=== PATIENT | male | born 1985 | race Caucasian/White ===

== ENCOUNTER 2016-12-04 16:28 | Emergency (ER) | payer OTHER ==
[2016-12-04 16:35] VITALS: BP 125/79
--- NOTE | 2016-12-04 17:13 | ED ---
Throat Pain/Nasal Congestion - HPI Summary HPI Summary: Patient arrives with CC of left sided upper dental pain x2 days. Hx of previous dental infections which have all resolved spontaneously without the use of abx or pain management. Today, he states the pain is severe at 9/10 and radiates to the ear. He has had several broken teeth, all without correction or extraction. Patient chews tobacco. Patient without swelling. Denies difficulty opening mouth, swallowing or fever. - History of Current Complaint Chief Complaint: EDDentalPain Time Seen by Provider: 12/04/16 16:39 Hx Obtained From: Patient Onset/Duration: Sudden Onset Severity: Moderate Associated Signs And Symptoms: Positive: Negative - Allergies/Home Medications Allergies/Adverse Reactions: Allergies Allergy/AdvReac Type Severity Reaction Status Date / Time No Known Allergies Allergy Verified 07/29/13 10:36 PMH/Surg Hx/FS Hx/Imm Hx Previously Healthy: Yes Sensory History: Denies: Hx Contacts or Glasses Opthamlomology History: Denies: Hx Contacts or Glasses - Immunization History Hx Pertussis Vaccination: Yes Immunizations Up to Date: Unable to Obtain/Confirm Infectious Disease History: Yes Infectious Disease History: Denies: Hx Clostridium Difficile, Hx Hepatitis, Hx Human Immunodeficiency Virus (HIV), Hx of Known/Suspected MRSA, Hx Shingles, Hx Tuberculosis, Hx Known/ Suspected VRE, Hx Known/Suspected VRSA, History Other Infectious Disease, Traveled Outside the in Last 30 Days - Social History Occupation: Employed Full-time Lives: With Family Alcohol Use: Occasionally Hx Substance Use: No Substance Use Type: Reports: None Smoking Status (MU): Never Smoked Tobacco Type: Smokeless Tobacco Length of Time of Smoking/Using Tobacco: "a few years" Have You Smoked in the Last Year: No Review of Systems Constitutional: Negative Positive: Dental Pain Cardiovascular: Negative Respiratory: Negative Gastrointestinal: Negative Positive: no symptoms reported Musculoskeletal: Negative Skin: Negative Neurological: Negative All Other Systems Reviewed And Are Negative: Yes Physical Exam Triage Information Reviewed: Yes Vital Signs On Initial Exam: Initial Vitals Temp Pulse Resp BP Pulse Ox 98.0 F 66 20 125/79 100 12/04/16 16:33 12/04/16 16:33 12/04/16 16:33 12/04/16 16:33 12/04/16 16:33 Vital Signs Reviewed: Yes Appearance: Positive: Well-Appearing, Well-Nourished, Pain Distress Skin: Positive: Warm, Skin Color Reflects Adequate Perfusion Head/Face: Positive: Normal Head/Face Inspection, TMJ Tenderness - left sided ENT: Positive: Pharynx normal, TMs normal, Dental tenderness Dental: Positive: Percussion Tenderness @ - left upper jaw, Gross Decay/Caries @ - all, Dental Fracture @ - 6 total - upper and lower jaw throughout, Abscess @ - discoloration over left upper broken tooth with erythematous lesions around base Neck: Positive: Supple, Nontender Respiratory/Lung Sounds: Positive: Clear to Auscultation, Breath Sounds Present Cardiovascular: Positive: Normal Musculoskeletal: Positive: Normal, Strength/ROM Intact Neurological: Positive: Normal AVPU Assessment: Alert - [place] Coma Scale Best Eye Response: 4 - Spontaneous Best Motor Response: 6 - Obeys Commands Best Verbal Response: 5 - Oriented Diagnostics - Vital Signs Vital Signs Temp Pulse Resp BP Pulse Ox 12/04/16 16:33 98.0 F 66 20 125/79 100 - Laboratory Lab Statement: Any lab studies that have been ordered have been reviewed, and results considered in the medical decision making process. EENT Course/Dx - Course Course Of Treatment: No dental abscess seen over area of concern at left upper front molar. Erythema at site of pain. No drainage from area. Several dental caries, cavities, crowding and broken teeth throughout. No extractions seen. Pain on palpation over mandible. No TMJ tenderness. No pain with opening and closing mouth. Poor dental hygiene and outpatient dental care. Will treat for possible dental infection/abscess based on symptoms of pain and radiation to jaw and ear. No allergies. Will treat with Augmentin. Patient to follow up immediately with dentist. - Differential Diagnoses Differential Diagnoses: Dental Abscess, Dental Caries, Fractured Tooth, Periodontic Abscess, Periodontic Disease - Diagnoses Provider Diagnoses: Pain, dental Discharge - Discharge Plan Condition: Stable Disposition: HOME Prescriptions: Penicillin VK TAB 500 MG(NF) [Penicillin VK 500 mg Tab(NF)] 500 mg PO QID #28 tab MDD 4 traMADol TAB* [Ultram*] 50 mg PO Q6HR PRN #8 tab MDD 4 PRN Reason: Pain Patient Education Materials: Dental Abscess (ED) Referrals: Non Staff,Doctor [Medical Doctor] - Additional Instructions: You have been diagnosed with dental pain with possible infection: Antibiotics as prescribed to you. Penicillin VK 500mg 4 times daily for 7 days To minimize the potential for gastrointestinal intolerance, Penicillin should be taken at the start of a meal. If you have any questions about your medication, please contact us or ask your pharmacist. Salt water rinses several times per day will improve healing time. Ibuprofen 600mg three times daily with meals for discomfort. If pain is not well controlled with over the counter NSAIDS, you may use pain medication as prescribed to you. May use lollicaines over the area for comfort. Follow up with a dentist for routine care to prevent recurrence of infections. If fever, worsening pain or swelling develops, see your PCP, dentist or come back to the Emergency Department. Images - Images Dental: 1 - broken tooth with erythematous gums surrounding
== END 2016-12-04 17:10 | disposition home or self-care (01) ==
LOC: ED 16:28
DX: K08.89 Other specified disorders of teeth and supporting structures (principal)
CPT/HCPCS: 99281